=== PATIENT | male | born 1955 | race Caucasian/White ===

== ENCOUNTER → 2017-12-07 | Day surgery (SDC) | payer BC ==
[2017-11-25 11:05] VITALS: BMI 23.0
[~2017-12-07] VITALS: Ht 195.6 cm; Wt 88.6 kg
[~2017-12-07] MED LIST: ALBU18002 INH; ASPI-319 PO; COEN100C11 PO; FEXO1TAB49 PO; GLGKIT; GLUCTAB32 PO; INSPMPHMLG; LIDOCAINE HCL 2% 2 ML VIAL (20MG/ML) ONE; OMEGCAP2 PO; PROPOFOL IV EMULSION 10 MG/ML 20 ML VIAL ONE; QUIN1TAB49 PO; SIMV20TA2 PO; SODIUM CHLORIDE 0.9% 500ML 500 ML IV ONE; SYMIN160 INH
[2017-12-07 08:57] VITALS: Ht 195.6 cm; Wt 88.6 kg
--- NOTE | 2017-12-07 09:05 | Endo History and Physical ---
History & Physical Date of Service: December 07, 2017. Chief Complaint: History of colon polyps Referring Physician: Edenilson History of Present Illness 62 yo CM who presents for colonoscopy secondary to history of colon polyps. Past Surgical History Hx Cardiac Surgery: No Hx Internal Defibrillator: No Hx Pacemaker: No Hx Abdominal Surgery: No Hx of Implantable Prosthesis: No Hx Post-Op Nausea and Vomiting: No Hx Cancer Surgery: No Hx Thoracic Surgery: No Hx Orthopedic: Yes (RT/LEFT KNEE ARTHROSCOPY, RT/LEFT SHOULDER ARTHROSCOPY, RT ORIF WRIST) Hx Urinary Tract Surgery: No Family History Colon CA Social History Smoking Status: Former Smoker Hx Substance Use: No Hx Alcohol Use: Yes (2 BEERS A NIGHT) Allergies Coded Allergies: Penicillins (Verified Allergy, Mild, UNKNOWN, 12/07/17) Current Medications Reported Home Medications Medications Dose Route/Sig Max Daily Dose Days Date Category Coq-10 (Coenzyme Q10 (Ubidecarenone)) 100 Mg Cap 1 Tab PO DAILY 11/25/17 Reported Temi Allergy (Fexofenadine Hcl) 180 Mg Tab 1 Tab PO DAILY 30 11/25/17 Reported Glucagon Emergency Kit (Glucagon) 1 Mg Kit DIRECTED 11/25/17 Reported Proair Respiclick (Albuterol Sulfate) 108 Mcg/Act Aer 2 Puffs INH Q4 PRN 11/25/17 Reported Accupril (Quinapril HCl) 40 Mg Tab 1 Tab PO QAM 30 11/25/17 Reported Glucosamine Chondroitin & (Vcdrctaebqe-Qqzavddsgvr-Yy Cho) 1 Tab Tab 1 Tab PO BID 11/28/15 Reported Fish Oil ([place]-3 Fatty Acids) 1 Cap Cap 1 Cap PO BID 11/28/15 Reported Symbicort 160/4.5 Inhaler (Budesonide/Formoterol Fumarate) Aero 2 Puffs INH BID 11/28/15 Reported Insulin Humalog Pump (Insulin Human Lispro) Pump 1 Ea N/A UD 11/28/15 Reported Ecotrin Or Generic (Aspirin) 81 Mg Tab 81 Mg PO QPM 08/24/12 Reported Zocor (Simvastatin) 20 Mg Tab 20 Mg PO HS 09/03/06 Reported Vital Signs Weight (Kilograms): 88.64 Height (Feet): 6 Height (Inches): 5 Physical Exam General Appearance: WD/WN, no apparent distress Respiratory/Chest: Auscultation: breath sounds normal Cardiovascular: Heart Auscultation: RRR Abdomen: Bowel Sounds: normal Inspection & Palpation: soft, non-distended, no tenderness, guarding & rebound Assessment and Plan Assessment: 62 yo CM who presents for colonoscopy secondary to history of colon polyps. Plan: Proceed with colonoscopy.
--- NOTE | 2017-12-07 09:52 | Discharge Instructions ---
Endoscopy Patient Instructions Date / Procedure(s) Performed December 07, 2017. Colonoscopy Allergy Information Coded Allergies: Penicillins (Verified Allergy, Mild, UNKNOWN, 12/07/17) Discharge Date / Findings December 07, 2017. Colon polyps Internal hemorrhoids Medication Instructions Stopped Medication(s): ASA OK to resume all medications today as prescribed Reported Home Medications Medications Dose Route/Sig Max Daily Dose Days Date Category Coq-10 (Coenzyme Q10 (Ubidecarenone)) 100 Mg Cap 1 Tab PO DAILY 11/25/17 Reported Temi Allergy (Fexofenadine Hcl) 180 Mg Tab 1 Tab PO DAILY 30 11/25/17 Reported Glucagon Emergency Kit (Glucagon) 1 Mg Kit DIRECTED 11/25/17 Reported Proair Respiclick (Albuterol Sulfate) 108 Mcg/Act Aer 2 Puffs INH Q4 PRN 11/25/17 Reported Accupril (Quinapril HCl) 40 Mg Tab 1 Tab PO QAM 30 11/25/17 Reported Glucosamine Chondroitin & (Vkazbuuwczu-Nhobixgpsgj-Yk Cho) 1 Tab Tab 1 Tab PO BID 11/28/15 Reported Fish Oil ([place]-3 Fatty Acids) 1 Cap Cap 1 Cap PO BID 11/28/15 Reported Symbicort 160/4.5 Inhaler (Budesonide/Formoterol Fumarate) Aero 2 Puffs INH BID 11/28/15 Reported Insulin Humalog Pump (Insulin Human Lispro) Pump 1 Ea N/A UD 11/28/15 Reported Ecotrin Or Generic (Aspirin) 81 Mg Tab 81 Mg PO QPM 08/24/12 Reported Zocor (Simvastatin) 20 Mg Tab 20 Mg PO HS 09/03/06 Reported Provider Instructions Activity Restrictions - No exercising or heavy lifting for 24 hours. - Do not drink alcohol the day of the procedure. - Do not drive a car or operate machinery until the day after the procedure. - Do not make any important decisions or sign important papers in 24 hours after the procedure. Following Day: - Return to full activity which may include returning to work/school. Diet Start your diet with liquids and light foods (jello, soup, juice, toast). Then eat your usual diet if not nauseated. Treatment For Common After Affects For mild abdominal pain, bloating, or excessive gas: - Rest - Eat lightly - Lie on right side Follow-Up Information Follow-up with DR. PANDOLPH as scheduled Anesthesia Information What You Should Know You have had a procedure that required some medicine to reduce anxiety and discomfort. This treatment is called moderate sedation. After receiving the treatment, you may be sleepy, but you will be able to breathe on your own. The effects of the treatment may last for several hours. Follow these instructions along with Activity/Diet recommendations noted above: * Do NOT do anything where dizziness or clumsiness would be dangerous. * Rest quietly at home today, then you can be up and about tomorrow. * Have a responsible person stay with you the rest of today. * You may have had an I.V. today. If so, you may take the dressing off later today. Recommendations Call your doctor if: * Trouble breathing * Continuous vomiting for more than 24 hours * Temperature above 101 degrees * Severe abdominal pain or bloating * Pain not relieved by pain medicine ordered * There is increased drainage or redness from any incision * A large amount of rectal bleeding greater than 2-3 tablespoons. (If you had a polyp/s removed or have hemorrhoids, a small amount of blood - from the rectum is to be expected.) * You have any unanswered questions or concerns. IN THE EVENT OF A SERIOUS EMERGENCY, GO TO THE NEAREST EMERGENCY ROOM Your discharge instructions were prepared by provider Butch Kaplan. Patient Instructions Signature Page Brooks Cai Patient (or Guardian) Signature/Date: I have read and understand the instructions given to me by my caregivers. Caregiver/RN/Doctor Signature/Date: The above-named patient and/or guardian has received patient instructions on this date. + Original Patient Signature Page (only) stays with chart. Please make copy for patient.
--- NOTE | 2017-12-07 09:59 | GI REPORT ---
Patient Name: Brooks Cai Procedure Date: 12/07/2017 9:24 AM Date of : 1955 Admit Type: Outpatient Age: 62 Gender: Male Attending MD: Butch Kaplan DO Procedure: Colonoscopy Providers: Butch Kaplan DO Referring MD: Ranjan Pyle Indications: High risk colon cancer surveillance: Personal history of colonic polyps Medicines: Monitored Anesthesia Care Complications: No immediate complications. Estimated Blood Loss: Estimated blood loss: none. Procedure: Pre-Anesthesia Assessment: - Prior to the procedure, a History and Physical was performed, and patient medications and allergies were reviewed. The patient's tolerance of previous anesthesia was also reviewed. The risks and benefits of the procedure and the sedation options and risks were discussed with the patient. All questions were answered, and informed consent was obtained. Prior Anticoagulants: The patient has taken aspirin, last dose was 6 days prior to procedure. ASA Grade Assessment: III - A patient with severe systemic disease. After reviewing the risks and benefits, the patient was deemed in satisfactory condition to undergo the procedure. After I obtained informed consent, the scope was passed under direct vision. Throughout the procedure, the patient's blood pressure, pulse, and oxygen saturations were monitored continuously. The scope was introduced through the anus and advanced to the terminal ileum. The colonoscopy was performed without difficulty. The patient tolerated the procedure well. The quality of the bowel preparation was good. The terminal ileum, ileocecal valve, appendiceal orifice, and rectum were photographed. Findings: A 3 mm polyp was found in the ascending colon. The polyp was sessile. The polyp was removed with a cold biopsy forceps. Resection and retrieval were complete. A 5 mm polyp was found in the sigmoid colon. The polyp was sessile. The polyp was removed with a cold snare. Resection and retrieval were complete. Non-bleeding internal hemorrhoids were found during retroflexion. The hemorrhoids were small. Impression: - One 3 mm polyp in the ascending colon, removed with a cold biopsy forceps. Resected and retrieved. - One 5 mm polyp in the sigmoid colon, removed with a cold snare. Resected and retrieved. - Non-bleeding internal hemorrhoids. Recommendation: - Resume previous diet. - Continue present medications. - Repeat colonoscopy for surveillance based on pathology results. - Return to primary care physician as previously scheduled. Butch Kaplan, DO 12/07/2017 9:59:01 AM This report has been signed electronically. Note Initiated On: 12/07/2017 9:24 AM Number of Addenda: 0 I attest to the content of the Intraoperative Record and orders documented therein, exceptions below {[id number]}
--- NOTE | 2017-12-07 10:05 | Anesthesiology Progress Note ---
Anesthesia Post Op Note Date & Time December 07, 2017 at 10:04 Vital Signs Pain Intensity: 0 Vital Signs Past 12 Hours Date Time Temp Pulse Resp B/P (MAP) Pulse Ox O2 Delivery O2 Flow Rate FiO2 12/07/17 10:00 62 18 128/61 (83) 97 Room Air 12/07/17 09:45 73 16 98/52 (67) 96 Room Air 12/07/17 09:11 36.9 72 16 156/74 (101) 97 Room Air Notes Mental Status: alert / awake / arousable, participated in evaluation Pt Amnestic to Procedure: Yes Nausea / Vomiting: adequately controlled Pain: adequately controlled Airway Patency, RR, SpO2: stable & adequate BP & HR: stable & adequate Hydration State: stable & adequate Anesthetic Complications: no major complications apparent
[2017-12-07 10:15] VITALS: BP 123/69; PULSE 56; O2SAT 98
== END | disposition home or self-care (01) ==
LOC: C.GI 08:06
PROVIDERS: ATTEND Internal Medicine
DX: Z12.11 Encounter for screening for malignant neoplasm of colon (principal); D12.2 Benign neoplasm of ascending colon; D12.5 Benign neoplasm of sigmoid colon; K64.8 Other hemorrhoids; E11.9 Type 2 diabetes mellitus without complications; I10 Essential (primary) hypertension; J45.909 Unspecified asthma, uncomplicated; Z86.010 Personal history of colon polyps; Z80.0 Family history of malignant neoplasm of digestive organs; Z87.891 Personal history of nicotine dependence; Z79.4 Long term (current) use of insulin; Z79.899 Other long term (current) drug therapy; Z96.41 Presence of insulin pump (external) (internal)